=== PATIENT | male | born 1950 | race Caucasian/White ===

== ENCOUNTER 2022-12-17 06:40 | Emergency (ER) | payer MEDICARE, MEDICAID ==
[~2022-12-17] VITALS: Ht 177.8 cm; Wt 68.2 kg
[~2022-12-17 06:40] MED LIST: BUPR200T2 PO; FLUP5TAB31 PO; HYDR25TA PO; RISP1TAB48 PO; TRIH5TAB4 PO
[2022-12-17 07:13] VITALS: BP 122/72; PULSE 94; RESP 16; TEMP 97.9
[2022-12-17] MEDS ORDERED: PERTUSS(ACELL),DIPH,TET VAC/PF 0.5 ML SYRINGE IM. ONE (07:30)
== END 2022-12-17 09:12 | disposition home or self-care (01) ==
LOC: EMS 06:41
DX: S09.90XA Unspecified injury of head, initial encounter (principal); I10 Essential (primary) hypertension; F17.210 Nicotine dependence, cigarettes, uncomplicated; Z88.0 Allergy status to penicillin; W05.0XXA Fall from non-moving wheelchair, initial encounter; Y93.89 Activity, other specified; Y92.89 Other specified places as the place of occurrence of the external cause; Y99.8 Other external cause status
CPT/HCPCS: 90471; 90715; 99283